=== PATIENT | male | born 1985 | race Caucasian/White ===

== ENCOUNTER 2016-05-26 23:02 | Emergency (ER) | payer SELFPAY ==
[~2016-05-26] VITALS: Ht 185.4 cm; Wt 68.9 kg
[~2016-05-26 23:02] MED LIST: DICL75 PO
[2016-05-26 23:15] VITALS: BP 108/75; PULSE 93; RESP 16; TEMP 97.9; O2SAT 97
--- NOTE | 2016-05-27 03:02 | PD ---
HPI Chief Complaint: Edema Time Seen by Provider: 02:49 Travel History International Travel<30 days: No Contact w/Intl Traveler<30days: No Traveled to known affect area: No History of Present Illness HPI The patient is a 31-year-old male that complains of swelling on the left neck. He was tender on his teeth but he took amoxicillin 500 mg 3 times a day and his teeth are not tender now. He is just as tender on his neck despite amoxicillin. He denies any fever. He has had dental infections before. PFSH Past Medical History Medical History: Denies Significant Hx Medical other: Yes (eye surgery as a child) Tetanus Vaccination: > 5 Years Influenza Vaccination: No Social History Alcohol Use: No (on probation) Tobacco Use: Yes (1ppd) Allergies-Medications (Allergen,Severity, Reaction): Coded Allergies: No Known Allergies (Unverified , 05/27/16) Reported Meds & Prescriptions Reported Meds & Active Scripts Active Ibuprofen 800 Mg Tab 800 Mg PO TID Cleocin (Clindamycin HCl) 300 Mg Cap 600 Mg PO Q8H Review of Systems Except as stated in HPI: all other systems reviewed are Neg Physical Exam Narrative GENERAL: Well-nourished, well-developed patient in slight apparent distress with his left submandibular lymph node discomfort. His vital signs are normal. SKIN: Focused skin assessment warm/dry. HEAD: Normocephalic. While at the patient he has no visible swelling externally. He is symmetric and there is no erythema anywhere. EYES: No scleral icterus. No injection or drainage. NECK: Supple, trachea midline. No JVD. He does have a tender lymph node on the submandibular area on the left. No fluctuance is present and there is no erythema present around this area. His teeth are not tender but his gums are slightly tender. CARDIOVASCULAR: Regular rate and rhythm without murmurs, gallops, or rubs. RESPIRATORY: Breath sounds equal bilaterally. No accessory muscle use. GASTROINTESTINAL: Abdomen soft, non-tender, nondistended. MUSCULOSKELETAL: No cyanosis, or edema. BACK: Nontender without obvious deformity. No CVA tenderness. DENTAL: No loose or chipped teeth. No malocclusion. There is no dental tenderness present. There is gum tenderness on the left. No drainable dental abscess is noted. No TMJ tenderness is present. Data Data Last Documented VS Vital Signs Date Time Temp Pulse Resp B/P Pulse Ox O2 Delivery O2 Flow Rate FiO2 05/27/16 01:51 98 Room Air 05/26/16 23:15 97.9 93 16 108/75 Orders Clindamycin (Cleocin) (05/27/16 03:15) Ibuprofen (Motrin) (05/27/16 03:15) MDM Medical Decision Making Medical Screen Exam Complete: Yes Emergency Medical Condition: Yes Medical Record Reviewed: Yes Differential Diagnosis Dental infection, drainable dental abscess, tender lymph node, Diego's angina highly unlikely Narrative Course The patient has a tender lymph node from what was likely a dental infection. He took 3 days of amoxicillin and this may have helped the infection and the teeth but the lymph node is now swollen and tender. Plan: The patient be given Cleocin 4 times daily for 10 days. Diagnosis Primary Impression: Dental infection Additional Impression: Lymphadenitis Additional Instructions: Take the antibiotic regularly, 2 tablets 3 times daily. The side effect of the antibiotic is stomach pain and diarrhea. Follow-up with a dentist. Scripts Ibuprofen 800 Mg [id number] Mg PO TID #44 TAB Ref 0 Prov:Gaudencio Rose MD 05/27/16 Clindamycin (Cleocin)300 Mg [id number] Mg PO Q8H #60 CAP Ref 0 Prov:Gaudencio Rose MD 05/27/16 Disposition: 01 DISCHARGE HOME Condition: Stable Gaudencio Rose MD May 27, 2016 03:02
[2016-05-27] MEDS ORDERED: CLEO300C2 PO (03:05)
[2016-05-27] MEDS ORDERED: IBUP800T23 PO (03:06)
[2016-05-27] MEDS ORDERED: CLINDAMYCIN 150 MG CAP PO ONE (03:15)
[2016-05-27] MEDS ORDERED: IBUPROFEN 800 MG TAB PO ONE (03:15)
== END 2016-05-27 03:26 | disposition home or self-care (01) ==
LOC: PHED 23:02
DX: K04.7 Periapical abscess without sinus (principal); I88.9 Nonspecific lymphadenitis, unspecified; F17.210 Nicotine dependence, cigarettes, uncomplicated
CPT/HCPCS: 99282

== ENCOUNTER 2017-02-08 23:55 | Emergency (ER) | payer MEDICAID ==
[~2017-02-08] VITALS: Ht 185.4 cm; Wt 71.7 kg
[~2017-02-08 23:55] MED LIST changes: +CLEO300C2 PO; -DICL75 PO; +IBUP1TAB7 PO
[2017-02-09 00:01] VITALS: BP 118/64; PULSE 104; RESP 18; TEMP 98.1; O2SAT 100
[2017-02-09] MEDS ORDERED: oxyCODONE/ACETAMINOPHEN 5 MG/325 MG TAB PO ONE (00:15)
[2017-02-09] MEDS ORDERED: LIDOCAINE HCL 2% 20 ML VIAL INFIL ONE (00:15)
[2017-02-09 00:29] VITALS: BP 118/64; PULSE 104; RESP 18; TEMP 98.1; O2SAT 100
[2017-02-09] MEDS ORDERED: LIDOCAINE HCL 2% 50 ML VIAL INFIL SCH (00:30)
[2017-02-09] MEDS ORDERED: CEPHALEXIN MONOHYDRATE 500 MG CAP PO ONE (01:15)
[2017-02-09] MEDS ORDERED: SULFAMETHOXAZOLE-TRIMETHOPRIM DS 800-160 MG TAB PO ONE (01:15)
[2017-02-09] MEDS ORDERED: MORPHINE SULFATE 2 MG/ML INJ IV PUSH ONE (01:15)
--- NOTE | 2017-02-09 01:15 | PD ---
HPI Chief Complaint: Skin Problem Time Seen by Provider: 00:06 Travel History International Travel<30 days: No Contact w/Intl Traveler<30days: No Traveled to known affect area: No History of Present Illness HPI Patient is a 31 year old male who comes in complaining of a painful lump to his right thigh. He says it has been there for a week, but has been getting much worse in the past 3 days. He says he tried to drain it 3 days ago, but nothing came out. He says the area around it has been red, extending down to his knee. He denies fever or chills. He did not notice any cuts or wounds to the area, prior to the appearance of the lump. He says he has never had this before. He says walking makes his pain worse. [facility] Past Medical History Medical History: Denies Significant Hx Influenza Vaccination: No ?: Not Past Surgical History Surgical History: No Previous Surgery Social History Alcohol Use: No (on probation) Tobacco Use: Yes (1ppd) Substance Use: Yes (Marijuana) Allergies-Medications (Allergen,Severity, Reaction): Coded Allergies: No Known Allergies (Verified Allergy, Unknown, 02/09/17) Reported Meds & Prescriptions Reported Meds & Active Scripts Active Review of Systems Except as stated in HPI: all other systems reviewed are Neg General / Constitutional: No: Fever, Chills HENT: No: Headaches, Lightheadedness Cardiovascular: No: Chest Pain or Discomfort Respiratory: No: Shortness of Breath Gastrointestinal: No: Nausea, Vomiting Musculoskeletal: Positive: Pain Skin: Positive Lesions Neurologic: No: Weakness, Dizziness, Syncope Physical Exam Narrative GENERAL: Awake and alert, in no acute distress. SKIN: 4cm fluctuant mass to the right posterior thigh with 1cm area of surrounding erythema. No active drainage. HEAD: Atraumatic. Normocephalic. EYES: Pupils equal and round. No scleral icterus. No injection or drainage. ENT: No nasal bleeding or discharge. Mucous membranes pink and moist. NECK: Trachea midline. No JVD. CARDIOVASCULAR: Regular rate and rhythm. No murmur appreciated. RESPIRATORY: No accessory muscle use. Clear to auscultation. Breath sounds equal bilaterally. MUSCULOSKELETAL: No obvious deformities. No clubbing. No cyanosis. No edema. NEUROLOGICAL: Awake and alert. No obvious cranial nerve deficits. Motor grossly within normal limits. Normal speech. PSYCHIATRIC: Appropriate mood and affect; insight and judgment normal. Data Data Last Documented VS Vital Signs Date Time Temp Pulse Resp B/P (MAP) Pulse Ox O2 Delivery O2 Flow Rate FiO2 02/09/17 01:37 16 02/09/17 00:29 98.1 104 118/64 (82) 100 Orders Orders Oxycodone-Acetamin 5-325 Mg (Percocet (02/09/17 00:15) Lidocaine 2% Inj (Xylocaine 2% Inj) (02/09/17 00:15) Lidocaine 2% Inj (Xylocaine 2% Inj) (02/09/17 00:30) Iv Access Insert/Monitor (02/09/17 01:02) Complete Blood Count With Diff (02/09/17 01:02) Basic Metabolic Panel (Bmp) (02/09/17 01:02) Ct Femur W Iv Contrast (02/09/17 ) Morphine Inj (Morphine Inj) (02/09/17 01:15) Wound Culture And Gram Stain (02/09/17 01:04) Sulfamet-Trimeth Ds 800-160 Mg (Bactrim (02/09/17 01:15) Cephalexin (Keflex) (02/09/17 01:15) Iohexol 350 Inj (Omnipaque 350 Inj) (02/09/17 01:41) Labs Laboratory Tests Test 02/09/17 01:11 White Blood Count 9.0 TH/MM3 Red Blood Count 4.28 MIL/MM3 Hemoglobin 12.4 GM/DL Hematocrit 36.5 % Mean Corpuscular Volume 85.3 FL Mean Corpuscular Hemoglobin 28.9 PG Mean Corpuscular Hemoglobin Concent 33.9 % Red Cell Distribution Width 12.6 % Platelet Count 256 TH/MM3 Mean Platelet Volume 8.3 FL Neutrophils (%) (Auto) 74.2 % Lymphocytes (%) (Auto) 18.1 % Monocytes (%) (Auto) 5.2 % Eosinophils (%) (Auto) 1.7 % Basophils (%) (Auto) 0.8 % Neutrophils # (Auto) 6.6 TH/MM3 Lymphocytes # (Auto) 1.6 TH/MM3 Monocytes # (Auto) 0.5 TH/MM3 Eosinophils # (Auto) 0.2 TH/MM3 Basophils # (Auto) 0.1 TH/MM3 CBC Comment DIFF FINAL Differential Comment Blood Urea Nitrogen 10 MG/DL Creatinine 0.95 MG/DL Random Glucose 104 MG/DL Calcium Level 9.0 MG/DL Sodium Level 140 MEQ/L Potassium Level 4.1 MEQ/L Chloride Level 104 MEQ/L Carbon Dioxide Level 29.9 MEQ/L Anion Gap 6 MEQ/L Estimat Glomerular Filtration Rate 93 ML/MIN MDM Medical Decision Making Medical Screen Exam Complete: Yes Emergency Medical Condition: Yes Medical Record Reviewed: Yes Differential Diagnosis Abscess versus cellulitis versus sepsis Narrative Course Patient is a 31-year-old male comes in complaining of a painful abscess to his right posterior thigh. Exam shows a large fluctuant abscess with surrounding erythema. IV established, labs sent. Labs show normal blood cell count, electrolytes are within normal limits. CT abdomen and pelvis performed after incision and drainage shows gas where the seizure was performed, and evidence of surrounding cellulitis. There is no retained fluid collections. Patient is given pain medicine. Given first dose of antibiotics here. Incision and drainage performed and patient feels much better. He is advised to take all the antibiotics. Advised to return in 2 days for wound check. Advised to return any time for any worsening symptoms. Procedures Procedure Narrative INCISION AND DRAINAGE OF ABSCESS: The area was prepped and was sterilely draped. A subcutaneous wheal of 2 % Xylocaine with a total number 7 mL was used to anesthetize the area properly. A number 11 scalpel was used to make a 2 -cm incision across the area of the abscess. The abscess was drained, complex loculations were broken down, and irrigated with normal saline. Cultures were obtained. Quarter inch iodoform packing was placed in the wound. Sterile dressing applied. Patient advised to have packing removed in two days. Diagnosis Primary Impression: Abscess Patient Instructions: Abscess (ED), General Instructions Additional Instructions: Take all of your antibiotic. Apply warm compresses to the area. Take Tylenol or ibuprofen as needed for pain. Keep the area clean and dry. Return in 2 days for wound check. Return any time for any worsening symptoms. Scripts Sulfamethoxazole-Trimethoprim (Bactrim DS) 800-160 Mg Tab 1 TAB PO BID for Infection, #14 TAB 0 Refills Prov: Kaylin Bob MD 02/09/17 Cephalexin (Keflex) 500 Mg Capsule 500 MG PO QID for Infection for 7 Days, CAP 0 Refills Prov: Kaylin Bob MD 02/09/17 Disposition: 01 DISCHARGE HOME Condition: Stable Kaylin Bob MD Feb 09, 2017 01:15
[2017-02-09 01:37] VITALS: RESP 16
[2017-02-09 01:37] LABS: AUTOMATED NEUTROPHIL # 6.6 TH/MM3 (1.8-7.7); BASOPHIL # 0.1 TH/MM3 (0-0.2); BASOPHIL % 0.8 % (0.0-2.0); EOSINOPHIL # 0.2 TH/MM3 (0-0.4); EOSINOPHIL % 1.7 % (0.0-4.0); HEMATOCRIT 36.5 % (39.0-51.0); HEMO FLAGS DIFF FINAL; LYMPH % 18.1 % (9.0-44.0); LYMPHOCYTE # 1.6 TH/MM3 (1.0-4.8); MEAN CELL VOLUME 85.3 FL (80.0-100.0); MEAN CORPUSCULAR HEMOGLOBIN 28.9 PG (27.0-34.0); MEAN CORPUSCULAR HGB CONC 33.9 % (32.0-36.0); MONO % 5.2 % (0.0-8.0); NEUT % 74.2 % (16.0-70.0); PLATELET COUNT 256 TH/MM3 (150-450); RED BLOOD COUNT 4.28 MIL/MM3 (4.50-5.90); RED CELL DISTRIBUTION WIDTH 12.6 % (11.6-17.2)
[2017-02-09] MEDS ORDERED: IOHEXOL 350 MG/ML 10 ML VIAL (for RAD DIAG) IVCONTRAST ONE (01:41)
[2017-02-09 01:43] LABS: POTASSIUM 4.1 MEQ/L (3.5-5.1)
[2017-02-09 01:46] LABS: BICARBONATE 29.9 MEQ/L (21.0-32.0)
--- NOTE | 2017-02-09 02:08 | RADRPT ---
EXAM DATE/TIME: 02/09/2017 01:16 [place] COMPARISON: No previous studies available for comparison. INDICATIONS : Abscess posterior right thigh. IV CONTRAST: 75 cc Omnipaque 350 (iohexol) IV RADIATION DOSE: 14.81 CTDIvol (mGy) MEDICAL HISTORY : None SURGICAL HISTORY : None. ENCOUNTER: Initial ACUITY: 2 weeks PAIN SCALE: 9/10 LOCATION: Right posterior upper leg. TECHNIQUE: Volumetric scanning of the femur was performed. Using automated exposure control and adjustment of t he mA and/or kV according to patient size, radiation dose was kept as low as reasonably achievable to obtain optimal diagnostic quality images. DICOM format image data is available electronically for review and comparison. FINDINGS: The right femur is intact without evidence of fracture, periosteal reaction, or bony destruction. Th e right acetabulum intact. There is focal gas in the thickened skin of the medial posterior mid thigh with skin thickening measu ring up to 1.3 cm. There is some lacy induration of the adjacent fat, but the with the musculature i s maintained. CONCLUSION: 1. Soft tissue abnormality posterior medial mid thigh with skin thickening, focal collection of gas m easuring 1.7 cm in some induration of the adjacent soft tissues. No drainable fluid collections seen . 2. Muscle and bone appear radiographically intact. Dima Barraza MD on February 09, 2017 at 2:03 Board Certified Radiologist. This report was verified electronically.
[2017-02-09] MEDS ORDERED: CEPH-460 PO (02:21)
[2017-02-09] MEDS ORDERED: BACT800T5 PO (02:21)
[2017-02-09 02:22] VITALS: BP 103/59
== END 2017-02-09 02:32 | disposition home or self-care (01) ==
LOC: PHED 23:55
DX: L02.415 Cutaneous abscess of right lower limb (principal); F17.200 Nicotine dependence, unspecified, uncomplicated
CPT/HCPCS: 10061; 73701; 80048; 85025; 87070; 99285; Q9967